=== PATIENT | female | born 1965 | race Caucasian/White ===

== ENCOUNTER 2020-02-03 02:07 | Emergency (ER) | payer OTHER ==
[~2020-02-03] VITALS: Ht 160 cm; Wt 86.2 kg
[2020-02-03] MEDS ORDERED: NORVASC10 MG (02:19)
[2020-02-03] MEDS ORDERED: TENORMIN25 MG (02:19)
[2020-02-03] MEDS ORDERED: PEPCID40 MG PO (07:50)
[2020-02-03] MEDS ORDERED: MOBIC15 MG PO (07:50)
== END 2020-02-03 09:13 ==
LOC: ER 02:07 → CPU-OBS 02:15 → ER 09:13
DX: R07.89 Other chest pain (principal); K21.9 Gastro-esophageal reflux disease without esophagitis; M94.0 Chondrocostal junction syndrome [Tietze]